=== PATIENT | female | born 1980 | race Two or more races ===

== ENCOUNTER → 2024-11-25 | Outpatient (CLI) | payer MEDICAID, SELFPAY ==
--- NOTE | 2024-11-25 09:00 | XR_ITS ---
Examination: Gastrografin enema with KUB Fluoroscopy 24 spot fluoroscopic films of the colon Date and time: November 25, 2024 0938 hours INDICATIONS: Ileostomy history 2023 TECHNIQUE AND FINDINGS: Colon filled retrograde manner with Gastrografin to the cecum with reflux into the terminal ileum Abundant stool is present in the colon No constricting colonic lesion No rectal or other ulcerations Mucosal detail appears satisfactory on the postevacuation films Fluoroscopy 0.22 minutes 24 spot fluoroscopic films of the colon IMPRESSION: Colon filled in retrograde manner to the cecum with reflux into terminal ileum No constricting colonic lesions
== END | disposition home or self-care (01) ==
PROVIDERS: Referring Provider Surgery; Visit Provider Surgery
DX: K63.89 Other specified diseases of intestine (principal)
CPT/HCPCS: 74280